=== PATIENT | male | born 1965 | race Caucasian/White ===

== ENCOUNTER 2018-12-13 08:36 | Day surgery (SDC) | payer OTHER ==
[~2018-12-13] VITALS: Ht 170.2 cm; Wt 79.4 kg
[2018-12-13] MEDS ORDERED: LIDOCAINE 2% 100 MG/5 ML UJET TP ONE (10:26)
[2018-12-13] MEDS: fentaNYL 0.05 MG/ML VIAL ONE ×2 (10:51→11:01)
== END 2018-12-13 11:30 | disposition home or self-care (01) ==
LOC: MDS 08:36 → MMU 08:36 → MDS 11:30
PROVIDERS: ATTEND Internal Medicine Gastroenterology
DX: Z12.11 Encounter for screening for malignant neoplasm of colon (principal); E66.3 Overweight; Z68.27 Body mass index [BMI] 27.0-27.9, adult; Z98.890 Other specified postprocedural states; Z79.899 Other long term (current) drug therapy
CPT/HCPCS: 45378; J3010